=== PATIENT | female | born 1995 | race Caucasian/White ===

== ENCOUNTER 2018-04-30 16:37 | Emergency (ER) | payer BC ==
[2018-04-30 18:24] LABS: ABS Basophils 0 10^3/ul (0-0.2); ABS Eosinophils 0 10^3/ul (0-0.6); ABS Monocytes 0.9 10^3/ul (0-0.8); ABS Nucleated RBC 0 10^3/ul; Eosinophil % 0.2 % (0-6); Hematocrit 36 % (35-47); Hemoglobin 12.4 g/dl (12.0-16.0); Lymphocyte % 8.9 % (25-47); Mean Corpuscular HGB Conc 34 g/dl (31-36); Mean Corpuscular Hemoglobin 29 pg (27-31); Mean Corpuscular Volume 84 fL (80-97); Mean Platelet Volume 7.3 um3 (7.4-10.4); Nucleated Red Blood Cells % 0; Platelet Count 283 10^3/ul (150-450); Red Cell Distribution Width 14 % (10.5-15)
[2018-04-30 18:42] LABS: EGFR Non-African American 81.1 (>60)
[2018-04-30 19:19] LABS: Urine Appearance Clear; Urine Blood 1+ (Negative); Urine Color Yellow; Urine Ketones 1+ (Negative); Urine Protein Negative (Negative); Urine Red Blood Cell 1+(3-5/hpf) (Absent); Urine Specific Gravity 1.006 (1.010-1.030); Urine Urobilinogen Negative (Negative); Urine White Blood Cell 3+(>20/hpf) (Absent)
[2018-04-30] MEDS ORDERED: NS 0.9% 1000 ML* 1,000 ML IV ONE (19:58)
[2018-04-30] MEDS ORDERED: Ciprofloxacin 400MG IVPREMIX(* 400 MG/200 ML BAG IVPB ONE (19:58)
[2018-04-30] MEDS ORDERED: Ibuprofen TAB* 400 MG PO ONE (20:01)
--- NOTE | 2018-04-30 20:40 | ED ---
Back Pain - HPI Summary HPI Summary: This is scribe Macho Lakhwinder documenting for attending Dr. Adonis Ro MD. A 22 y/o female presents to ED c/o sharp lower back pain. As per triage, "pt states shes had lower back pain that started last night with a fever today. She does not know what her temp was. Also made mention of possible impacted bowel due to her just starting wellbutrin". According to the patient, since last night she has been experiencing sharp lower back pain. The pain is constant depending on how she moves ("more or less") and it kept her up all night. Additionally it seemed to migrate a bit. Today she noted that she spiked a fever. Patient denies any burning, blood or pain with urination. She believes it could be a possible impacted bowel due to recently starting her Wellbutrin medication. PMHx of Tonsillectomy, anxiety and depression, denies any UTI or bladder infection. SHx of student at [employer]. LKMP was a month ago, late by a couple days. Just started control. IUD. - History of Current Complaint Chief Complaint: EDBackInjuryPain Stated Complaint: LT SIDE ABD PAIN Time Seen by Provider: 04/30/18 18:04 Hx Obtained From: Patient Onset/Duration: Sudden Onset, Lasting Days, Still Present Onset/Duration: Started Days Ago, Still Present Back Pain Location: Is Discrete @ - Lower, Radiates To Severity Initially: Moderate Severity Currently: Moderate Pain Intensity: 6 Pain Scale Used: 0-10 Numeric Character: Sharp Aggravating Symptom(s): Movement Alleviating Symptom(s): Nothing Associated Signs And Symptoms: Positive: Fever - Allergies/Home Medications Allergies/Adverse Reactions: Allergies Allergy/AdvReac Type Severity Reaction Status Date / Time amoxicillin Allergy Rash Verified 04/30/18 18:33 Penicillins Allergy Rash Verified 04/30/18 18:33 sulfa drugs Allergy Rash Uncoded 04/30/18 18:33 PMH/Surg Hx/FS Hx/Imm Hx Endocrine/Hematology History: Denies: Hx Diabetes Cardiovascular History: Denies: Hx Hypertension Psychiatric History: Reports: Hx Anxiety, Hx Depression Infectious Disease History: No Infectious Disease History: Denies: Traveled Outside the [place] in Last 30 Days - Family History Known Family History: Positive: Cardiac Disease - Father side of family., Hypertension - Father, Diabetes - Type II (father) - Social History Alcohol Use: Occasionally - Very occasional Substance Use Type: Reports: None Hx Tobacco Use: No Smoking Status (MU): Never Smoked Tobacco Review of Systems Positive: Fever. Negative: Chills Negative: Erythema Negative: Sore Throat Negative: Chest Pain Negative: Shortness Of Breath, Cough Negative: Abdominal Pain, Vomiting, Nausea Negative: burning, dysuria, hematuria, pain Positive: Other - POSITIVE: Back pain.. Negative: Myalgia, Edema Negative: Rash Neurological: Other - NEGATIVE: Dizziness. All Other Systems Reviewed And Are Negative: Yes Physical Exam - Summary Physical Exam Summary: Constitutional: Well-developed, Well-nourished, Alert. (-) Distressed Skin: Warm, Dry HENT: Normocephalic; Atraumatic Eyes: Conjunctiva normal Neck: Musculoskeletal ROM normal neck. (-) JVD, (-) Stridor, (-) Tracheal deviation Cardio: Rhythm regular, rate normal, Heart sounds normal; Intact distal pulses; The pedal pulses are 2+ and symmetric. Radial pulses are 2+ and symmetric. (-) Murmur Pulmonary/Chest wall: Effort normal. (-) Respiratory distress, (-) Wheezes, (-) Rales Abd: Soft, (-) epigastric tenderness, (-) Distension, (-) Guarding, (-) Rebound. Left CVA tenderness. Musculoskeletal: (-) Edema Lymph: (-) Cervical adenopathy Neuro: Alert, Oriented x3 Psych: Mood and affect Normal Triage Information Reviewed: Yes Vital Signs On Initial Exam: Initial Vitals Temp Pulse Resp BP Pulse Ox 99.1 F 104 16 128/77 98 04/30/18 16:48 04/30/18 16:48 04/30/18 16:48 04/30/18 16:48 04/30/18 16:48 Vital Signs Reviewed: Yes Diagnostics - Vital Signs Vital Signs Temp Pulse Resp BP Pulse Ox 04/30/18 16:48 99.1 F 104 16 128/77 98 - Laboratory Lab Results: Lab Results 04/30/18 04/30/18 04/30/18 Range/Units 18:14 18:14 18:14 WBC 11.0 H (3.5-10.8) 10^3/ul RBC 4.30 (4.00-5.40) 10^6/ul Hgb 12.4 (12.0-16.0) g/dl Hct 36 (35-47) % MCV 84 (80-97) fL MCH 29 (27-31) pg MCHC 34 (31-36) g/dl RDW 14 (10.5-15) % Plt Count 283 (150-450) 10^3/ul MPV 7.3 L (7.4-10.4) um3 Neut % (Auto) 82.2 (38-83) % Lymph % (Auto) 8.9 L (25-47) % [place] % (Auto) 8.3 H (0-7) % Eos % (Auto) 0.2 (0-6) % Baso % (Auto) 0.4 (0-2) % Absolute Neuts (auto) 9.0 H (1.5-7.7) 10^3/ul Absolute Lymphs (auto) 1.0 (1.0-4.8) 10^3/ul Absolute Monos (auto) 0.9 H (0-0.8) 10^3/ul Absolute Eos (auto) 0 (0-0.6) 10^3/ul Absolute Basos (auto) 0 (0-0.2) 10^3/ul Absolute Nucleated RBC 0 10^3/ul Nucleated RBC % 0 Sodium 132 L (135-145) mmol/L Potassium 4.1 (3.5-5.0) mmol/L Chloride 98 L (101-111) mmol/L Carbon Dioxide 24 (22-32) mmol/L Anion Gap 10 (2-11) mmol/L BUN 10 (6-24) mg/dL Creatinine 0.88 (0.51-0.95) mg/dL Est GFR ( Amer) 98.1 (>60) Est GFR (Non-Af Amer) 81.1 (>60) BUN/Creatinine Ratio 11.4 (8-20) Glucose 103 H (70-100) mg/dL Lactic Acid 0.7 (0.5-2.0) mmol/L Calcium 10.0 (8.6-10.3) mg/dL Total Bilirubin 0.90 (0.2-1.0) mg/dL AST 14 (13-39) U/L ALT 11 (7-52) U/L Alkaline Phosphatase 56 (34-104) U/L C-Reactive Protein 19.94 H (<8.01) mg/L Total Protein 7.3 (6.4-8.9) g/dL Albumin 4.8 (3.2-5.2) g/dL Globulin 2.5 (2-4) g/dL Albumin/Globulin Ratio 1.9 (1-3) Lipase 11 (11.0-82.0) U/L Beta HCG, Quant Pending Urine Color Urine Appearance Urine pH (5-9) Ur Specific [place] (1.010-1.030) Urine Protein (Negative) Urine Ketones (Negative) Urine Blood (Negative) Urine Nitrate (Negative) Urine Bilirubin (Negative) Urine Urobilinogen (Negative) Ur Leukocyte Esterase (Negative) Urine WBC (Auto) (Absent) Urine RBC (Auto) (Absent) Ur Squamous Epith Cells (Absent) Urine Bacteria (Absent) Urine Glucose (Negative) 04/30/18 Range/Units 19:03 WBC (3.5-10.8) 10^3/ul RBC (4.00-5.40) 10^6/ul Hgb (12.0-16.0) g/dl Hct (35-47) % MCV (80-97) fL MCH (27-31) pg MCHC (31-36) g/dl RDW (10.5-15) % Plt Count (150-450) 10^3/ul MPV (7.4-10.4) um3 Neut % (Auto) (38-83) % Lymph % (Auto) (25-47) % [place] % (Auto) (0-7) % Eos % (Auto) (0-6) % Baso % (Auto) (0-2) % Absolute Neuts (auto) (1.5-7.7) 10^3/ul Absolute Lymphs (auto) (1.0-4.8) 10^3/ul Absolute Monos (auto) (0-0.8) 10^3/ul Absolute Eos (auto) (0-0.6) 10^3/ul Absolute Basos (auto) (0-0.2) 10^3/ul Absolute Nucleated RBC 10^3/ul Nucleated RBC % Sodium (135-145) mmol/L Potassium (3.5-5.0) mmol/L Chloride (101-111) mmol/L Carbon Dioxide (22-32) mmol/L Anion Gap (2-11) mmol/L BUN (6-24) mg/dL Creatinine (0.51-0.95) mg/dL Est GFR ( Amer) (>60) Est GFR (Non-Af Amer) (>60) BUN/Creatinine Ratio (8-20) Glucose (70-100) mg/dL Lactic Acid (0.5-2.0) mmol/L Calcium (8.6-10.3) mg/dL Total Bilirubin (0.2-1.0) mg/dL AST (13-39) U/L ALT (7-52) U/L Alkaline Phosphatase (34-104) U/L C-Reactive Protein (<8.01) mg/L Total Protein (6.4-8.9) g/dL Albumin (3.2-5.2) g/dL Globulin (2-4) g/dL Albumin/Globulin Ratio (1-3) Lipase (11.0-82.0) U/L Beta HCG, Quant Urine Color Yellow Urine Appearance Clear Urine pH 6.0 (5-9) Ur Specific [place] 1.006 L (1.010-1.030) Urine Protein Negative (Negative) Urine Ketones 1+ A (Negative) Urine Blood 1+ A (Negative) Urine Nitrate Positive A (Negative) Urine Bilirubin Negative (Negative) Urine Urobilinogen Negative (Negative) Ur Leukocyte Esterase 1+ A (Negative) Urine WBC (Auto) 3+(>20/hpf) A (Absent) Urine RBC (Auto) 1+(3-5/hpf) A (Absent) Ur Squamous Epith Cells Present A (Absent) Urine Bacteria 1+ A (Absent) Urine Glucose Negative (Negative) Result Diagrams: 04/30/18 18:14 04/30/18 18:14 Lab Statement: Any lab studies that have been ordered have been reviewed, and results considered in the medical decision making process. - Ultrasound No standard instances Ultrasound Interpretation Completed By: Radiologist - RENAL US: Sonographically normal left kidney. ED physician reviewed this radiology report. Re-Evaluation - Re-Evaluation First Eval Re-Evaluation Time: 21:30 Comment: MD had a length discussion with patient of discharge versus admission. Patient perferred discharge. Patient has no comorbidities. She understands if she feels worse tomorrow, she needs to come back to ED to be admitted. Patient has a road trip this week and it is advised to patient to make frequent stops. Patient will be discharged Back Pain Course/Dx - Course Course Of Treatment: A 22 y/o female presents to ED c/o sharp lower back pain. As per triage, "pt states shes had lower back pain that started last night with a fever today. She does not know what her temp was. Also made mention of possible impacted bowel due to her just starting wellbutrin". According to the patient, since last night she has been experiencing sharp lower back pain. The pain is constant depending on how she moves ("more or less") and it kept her up all night. Additionally it seemed to migrate a bit. Today she noted that she spiked a fever. A Renal US revealed sonographically normal left kidney. In the ED course, the patient received Cipro, Motrin and IV fluids. During reevaluation , MD had a length discussion with patient of discharge versus admission. Patient perferred discharge. Patient has no comorbidities. She understands if she feels worse tomorrow, she needs to come back to ED to be admitted. Patient has a road trip this week and it is advised to patient to make frequent stops. Patient will be discharged with a diagnosis of pyelonephritis. Patient is to follow up with [facility] in 1-2 days. Patient is agreeable with this plan. - Diagnoses Provider Diagnoses: Pyelonephritis Discharge - Sign-Out/Discharge Documenting (check all that apply): Patient Departure - DISCHARGE - Discharge Plan Condition: Stable Disposition: HOME Prescriptions: Ciprofloxacin TAB* [Cipro 500 MG TAB*] 500 mg PO BID #28 tab Patient Education Materials: Kidney Infection (ED), Low Back Strain (ED), Back Pain (ED) Referrals: [facility] [Outside] - 2 Days Additional Instructions: IF YOU FEEL WORSE TOMORROW, PLEASE COME BACK TO ED TO BE ADMITTED. DURING ROAD TRIP, IT IS ADVISED TO MAKE FREQUENT STOPS. FOLLOW UP WITH [facility] IN 1-2 DAYS. RETURN TO ED FOR ANY NEW OR WORSENING SYMPTOMS.
[2018-04-30 22:29] VITALS: BP 106/54
--- NOTE | 2018-05-01 07:28 | RAD ---
INDICATION: 18 hours of left flank pain COMPARISON: None TECHNIQUE: Real-time ultrasound examination of the left kidney including grayscale and Doppler color flow analysis. FINDINGS: Bilaterally the kidneys are normal in size and echogenicity. There are no hypervascular renal masses. There are no renal calculi or hydronephrosis identified. IMPRESSION: Normal ultrasound of the left kidney only.
--- NOTE | 2018-05-02 07:32 | PN ---
Progress Note - Progress Note Date of Service: 04/30/18 Note: Urine culture preliminary grew Escherichia coli 100,000 Patient was placed on ciprofloxacin prior to discharge We'll await sensitivities this time
--- NOTE | 2018-05-03 07:37 | PN ---
Progress Note - Progress Note Date of Service: 04/30/18 Note: E coli urine culture final Patient placed on Cipro prior to discharge Cipro sensitivity organism Nothing further at this time
== END 2018-04-30 22:28 | disposition home or self-care (01) ==
LOC: ED 16:37
DX: N12 Tubulo-interstitial nephritis, not specified as acute or chronic (principal); N39.0 Urinary tract infection, site not specified; B96.20 Unspecified Escherichia coli [E. coli] as the cause of diseases classified elsewhere
CPT/HCPCS: 36415; 76775; 80053; 81003; 81015; 83605; 83690; 84702; 85025; 86140; 87077; 87086; 87186; 96361; 96374; 99282; A9270-GY; J0744

== ENCOUNTER 2018-12-03 13:23 | Emergency (ER) | payer BC ==
[2018-12-03 13:54] VITALS: BP 102/65
--- NOTE | 2018-12-03 14:10 | UC ---
Complaint Female HPI - HPI Summary HPI Summary: 23 y/o female presents to the urgent care c/o frequency and burning on urination for the past 6 days. Frequency started first and then burning for the past 3 days. She has been drinking water, but no medications. Pain is 5/10 w/ urination. Pt denies fever, flank pain, lower back pain, vaginal discharge, pelvic pain, SOB, chest pain, abdominal pain, N/v/d, Hx of STD's. LMP:11/24/2018 w / IUD - History Of Current Complaint Chief Complaint: UCGU Stated Complaint: URINARY ISSUE Time Seen by Provider: 12/03/18 13:43 Hx Obtained From: Patient Hx Last Menstrual Period: 11/24/2018 Onset/Duration: Gradual Onset, Lasting Days - 6 days, Still Present, Worse Since - 3 days w/ burning on urination Timing: Intermittent Severity Initially: Mild Severity Currently: Moderate Pain Intensity: 5 Pain Scale Used: 0-10 Numeric Character: Burning Aggravating Factor(s): Urination Alleviating Factor(s): Nothing Associated Signs And Symptoms: Positive: Negative. Negative: Fever, Back Pain, Vaginal Discharge, Nausea, Vomiting(# Of Episodes =), Genital Swelling - Risk Factors Ectopic Risk Factor: Negative - Allergies/Home Medications Allergies/Adverse Reactions: Allergies Allergy/AdvReac Type Severity Reaction Status Date / Time amoxicillin Allergy Severe Anaphylatic Verified 12/03/18 13:54 Shock Penicillins Allergy Severe Anaphylatic Verified 12/03/18 13:54 Shock sulfa drugs Allergy Rash Uncoded 12/03/18 13:54 PMH/Surg Hx/FS Hx/Imm Hx Previously Healthy: Yes - Pt denies PMHX - Surgical History Surgical History: Yes Surgery Procedure, Year, and Place: Tonsils 2017 - Family History Known Family History: Positive: Cardiac Disease - Father side of family., Hypertension - Father, Diabetes - Type II (father) - Social History Occupation: Employed Full-time Lives: With Family Alcohol Use: Weekly Substance Use Type: None Smoking Status (MU): Never Smoked Tobacco Review of Systems All Other Systems Reviewed And Are Negative: Yes Constitutional: Positive: Negative Skin: Positive: Negative Eyes: Positive: Negative ENT: Positive: Negative Respiratory: Positive: Negative Cardiovascular: Positive: Negative Gastrointestinal: Positive: Negative Genitourinary: Positive: Dysuria, Frequency, Urgency Motor: Positive: Negative Neurovascular: Positive: Negative Musculoskeletal: Positive: Negative Neurological: Positive: Negative Psychological: Positive: Negative Is Patient Immunocompromised?: No Physical Exam - Summary Physical Exam Summary: VITAL SIGNS: Reviewed. GENERAL: Patient is a well developed and nourished female who is sitting comfortable in the examining table. Patient is not in any acute respiratory distress. HEAD AND FACE: No signs of trauma. No ecchymosis, hematomas or skull depressions. No sinus tenderness. EYES: PERRLA, EOMI x 2, No injected conjunctiva, clear watery eyes, no nystagmus. No photophobia. EARS: Hearing grossly intact. Ear canals and tympanic membranes are within normal limits. MOUTH: pharynx with no erythema, no exudates,no palatal petechiae. no B/L tonsillar enlargement Uvula in midline. NECK: Supple, trachea is midline, no lymphadenopathy, no JVD, no carotid bruit, no c-spine tenderness, neck with full ROM. CHEST: Symmetric, no tenderness at palpation LUNGS: Clear to auscultation bilaterally. No wheezing or crackles. CVS: Regular rate and rhythm, S1 and S2 present, no murmurs or gallops appreciated. ABDOMEN: Soft, non-tender. No signs of distention. No rebound no guarding, and no masses palpated. Bowel sounds are normal. BACK:no scoliosis or lesions, non tender to palpation, No B/L CVA tenderness EXTREMITIES: FROM in all major joints, no edema, no cyanosis or clubbing. NEURO: Alert and oriented x 3. No acute neurological deficits. Speech is normal and follows commands. SKIN: Dry and warm Triage Information Reviewed: Yes Vital Signs: Initial Vital Signs Temp 98.2 F 12/03/18 13:49 Pulse 86 12/03/18 13:49 Resp 16 12/03/18 13:49 BP 102/65 12/03/18 13:49 Pulse Ox 100 12/03/18 13:49 Complaint Female Dx - Course Course Of Treatment: 23 y/o female presents to the urgent care c/o frequency and burning on urination for the past 6 days. Frequency started first and then burning for the past 3 days. She has been drinking water, but no medications. Pain is 5/10 w/ urination. Pt denies fever, flank pain, lower back pain, vaginal discharge, pelvic pain, SOB, chest pain, abdominal pain, N/v/d, Hx of STD's. LMP:11/24/2018 w/ IUD. Hx obtained. PE:WNL. Pt decline pregnacy test. UA results: Blood trace, Leukoesterase trace. test: negative. Pt Rx Macrobid 100mg PO x 5 days. Pyridium 100mg PO TID x 2 days. Advised to increase fluid intake. Urine sent for culture if any abnormality Pt will be notified for further treatment. Pt advised If symptoms do not improve to return to the urgent care or f/u with PCP in 3 days for further managment. Pt understood and agreed w/ plan of care. Pt Left the clinic ambulating. - Differential Dx/Diagnosis Differential Diagnosis/HQI/PQRI: Cervicitis, Pelvic Inflammatory Disease, Renal Colic, Sexually Transmitted Disease, Ureteral Stone, Urinary Tract Infection Provider Diagnosis: UTI (urinary tract infection), Dysuria Discharge - Sign-Out/Discharge Documenting (check all that apply): Patient Departure - D/C home All imaging exams completed and their final reports reviewed: No Studies - Discharge Plan Condition: Stable Disposition: HOME Prescriptions: Nitrofurantoin Monohyd/M-Cryst [Macrobid 100 mg Capsule] 100 mg PO BID #10 cap Phenazopyridine TAB* [Pyridium 100 mg TAB*] 100 mg PO TID #6 tab Patient Education Materials: Urinary Tract Infection in Women (ED) Referrals: [facility] [Outside] - 3 Days Additional Instructions: 1- Please take Macrobid 100mg PO x 7 days. Pyridium 100 mg PO TID x 2 days to alleviate urinary symptoms. Increase increase fluid intake. drink cranberry juice. 2-Urine sent for culture if any abnormality, you will be notified for further treatment. 3-If symptoms do not improve please return to the urgent care or f/u with PCP in 3 days for further management. - Billing Disposition and Condition Condition: STABLE Disposition: Home
== END 2018-12-03 14:39 | disposition home or self-care (01) ==
LOC: UCEAST 13:23
DX: N39.0 Urinary tract infection, site not specified (principal); R30.0 Dysuria; Z88.0 Allergy status to penicillin; Z88.2 Allergy status to sulfonamides
CPT/HCPCS: 81003; 87077; 87086; 87186; 99212; G0463

== ENCOUNTER 2019-01-14 18:58 | Emergency (ER) | payer BC ==
--- NOTE | 2019-01-14 19:51 | ED ---
GI/ HPI - HPI Summary HPI Summary: Patient is a 23 y/o female who presents to the ED c/o nausea. For the past several months shes had digestive issues. Patient c/o nausea, reflux, belching , decreased appetite, and weight loss. She denies any abdominal pain. As per mother, shes lost about 30 lbs in the past 4 months. Her symptoms are made worse with eating. Patient was placed on Pepcid for 1 month however she has no relief with this. She notes that shes been on Wellbutrin and Prozac for the past year, and believes her symptoms may be due to these medications. Patient reports that her anxiety and depression have decreased since being on these medications. She has been trying to get into a new psychiatrist lately but hasn t been able to. - History of Current Complaint Chief Complaint: EDAbdPain Time Seen by Provider: 01/14/19 19:43 Stated Complaint: NAUSEA/VOMITING PER PT Hx Obtained From: Patient, Family/Studio Manager - Parents Hx Last Menstrual Period: 11/24/2018 Onset/Duration: Started Weeks Ago - several months, Still Present Timing: Constant Pain Intensity: 0 Associated Signs and Symptoms: Positive: Nausea, Weight Loss. Negative: Abdominal Pain Aggravating Factor(s): Food Alleviating Factor(s): Nothing - Allergy/Home Medications Allergies/Adverse Reactions: Allergies Allergy/AdvReac Type Severity Reaction Status Date / Time amoxicillin Allergy Severe Anaphylatic Verified 12/03/18 13:54 Shock Penicillins Allergy Severe Anaphylatic Verified 12/03/18 13:54 Shock sulfa drugs Allergy Rash Uncoded 12/03/18 13:54 PMH/Surg Hx/FS Hx/Imm Hx Endocrine/Hematology History: Denies: Hx Diabetes, Hx Thyroid Disease Cardiovascular History: Denies: Hx Hypertension Respiratory History: Denies: Hx Asthma, Hx Chronic Obstructive Pulmonary Disease (COPD) GI History: Denies: Hx Crohn's Disease, Hx Irritable Bowel, Hx Ulcer Psychiatric History: Reports: Hx Anxiety, Hx Depression - Surgical History Surgery Procedure, Year, and Place: 2016 Infectious Disease History: No Infectious Disease History: Denies: Hx Hepatitis, Hx Human Immunodeficiency Virus (HIV), Traveled Outside the [place] in Last 30 Days - Family History Known Family History: Positive: Cardiac Disease - Father side of family., Hypertension - Father, Diabetes - Type II (father) - Social History Alcohol Use: Weekly Hx Substance Use: No Substance Use Type: Reports: None Hx Tobacco Use: No Smoking Status (MU): Never Smoked Tobacco Review of Systems Positive: Other - weight loss Positive: Nausea, Other - decreased appetite, belching, reflux. Negative: Abdominal Pain All Other Systems Reviewed And Are Negative: Yes Physical Exam - Summary Physical Exam Summary: Appearance: Well appearing, no pain distress Skin: warm, dry, reflects adequate perfusion Head/face: normal Eyes: EOMI, JOSETTE ENT: normal Neck: supple, non-tender Respiratory: CTA, breath sounds present Cardiovascular: RRR, pulses symmetrical Abdomen: non-tender, soft Musculoskeletal: normal, strength/ROM intact Neuro: normal, sensory motor intact, A&Ox3 Triage Information Reviewed: Yes Vital Signs On Initial Exam: Initial Vitals Temp Pulse Resp BP Pulse Ox 98.7 F 95 15 114/73 100 01/14/19 19:00 01/14/19 19:00 01/14/19 19:00 01/14/19 19:00 01/14/19 19:00 Vital Signs Reviewed: Yes Diagnostics - Vital Signs Vital Signs Temp Pulse Resp BP Pulse Ox 01/14/19 19:00 98.7 F 95 15 114/73 100 - Laboratory Result Diagrams: 01/14/19 20:16 01/14/19 20:16 Lab Statement: Any lab studies that have been ordered have been reviewed, and results considered in the medical decision making process. Re-Evaluation - Re-Evaluation First Eval Re-Evaluation Time: 21:05 Change: Improved Comment: Pt feels fine now. GIGU Course/Dx - Course Course Of Treatment: Patient is a 23 y/o female who presents to the ED c/o nausea, reflux, belching, decreased appetite, and weight loss. She notes that shes been on Wellbutrin and Prozac for the past year, and believes her symptoms may be due to these medications. A physical exam was normal. Bloodwork/ UA obtained. Patient will be discharged with final dx of GERD and depression. She is agreeable with this plan. - Diagnoses Differential Diagnoses - Female: Gerd Provider Diagnoses: GERD (gastroesophageal reflux disease), Depression Discharge - Sign-Out/Discharge Documenting (check all that apply): Patient Departure - Discharge Patient Received Moderate/Deep Sedation with Procedure: No - Discharge Plan Condition: Improved Disposition: HOME Patient Education Materials: Depression (ED), Gastroesophageal Reflux Disease ( ED) [place]errals: [facility] [place] [facility] [place] [facility] [place]] - 3 Days Additional Instructions: RETURN TO THE ED WITH ANY NEW OR WORSENING SYMPTOMS. - Billing Disposition and Condition Condition: IMPROVED Disposition: Home - Attestation Statements Document Initiated by Adele: Yes Documenting Scribe: Eleanor Sawyer Provider For Whom Scribe is Documenting (Include Credential): Shahid Seaman MD Scribe Attestation: Eleanor Reilly, scribed for Shahid Seaman MD on 01/14/19 at 2143. Scribe Documentation Reviewed: Yes Provider Attestation: The documentation as recorded by the Eleanor molina accurately reflects the service I personally performed and the decisions made by Shahid ferrer MD Status of Scribe Document: Viewed
[2019-01-14 20:22] LABS: ABS Basophils 0.1 10^3/ul (0-0.2); ABS Eosinophils 0.1 10^3/ul (0-0.6); ABS Lymphocytes 2.2 10^3/ul (1.0-4.8); ABS Monocytes 0.5 10^3/ul (0-0.8); ABS Neutrophils 3.5 10^3/ul (1.5-7.7); ABS Nucleated RBC 0 10^3/ul; Hematocrit 32 % (33-41); Hemoglobin 10.7 g/dL (12.0-16.0); Lymphocyte % 34.4 %; Mean Corpuscular HGB Conc 33 g/dL (31-36); Mean Corpuscular Hemoglobin 27 pg (27-31); Mean Corpuscular Volume 82 fL (80-97); Mean Platelet Volume 6.9 fL (7.4-10.4); Nucleated Red Blood Cells % 0; Platelet Count 331 10^3/uL (150-450); Red Blood Count 3.96 10^6 /uL (3.70-4.87); Red Cell Distribution Width 14 % (10.5-15); White Blood Count 6.4 10^3/uL (3.5-10.8)
[2019-01-14 20:43] LABS: ALT 8 U/L (7-52); AST 12 U/L (13-39); Albumin 4.4 g/dL (3.2-5.2); Albumin/Globulin Ratio 2.1 (1-3); Alkaline Phosphatase 48 U/L (34-104); Anion Gap 7 mmol/L (2-11); Blood Urea Nitrogen 12 mg/dL (6-24); CO2 Carbon Dioxide 26 mmol/L (22-32); Calcium 9.3 mg/dL (8.6-10.3); Chloride 104 mmol/L (101-111); EGFR African American 99.8 (>60); EGFR Non-African American 82.5 (>60); Globulin 2.1 g/dL (2-4); Glucose 106 mg/dL (70-100); Potassium 4.4 mmol/L (3.5-5.0); Sodium 137 mmol/L (135-145); Total Protein 6.5 g/dL (6.4-8.9)
[2019-01-14 20:44] LABS: Acetaminophen < 15 mcg/mL; Alcohol < 10 mg/dL (<10); Salicylate < 2.50 mg/dL (<30)
[2019-01-14 20:45] LABS: HCG Pregnancy < 0.60 mIU/mL
[2019-01-14 21:53] VITALS: BP 119/71
== END 2019-01-14 21:51 | disposition home or self-care (01) ==
LOC: ED 18:58
DX: K21.9 Gastro-esophageal reflux disease without esophagitis (principal); F32.9 Major depressive disorder, single episode, unspecified; Z88.0 Allergy status to penicillin; Z88.2 Allergy status to sulfonamides
CPT/HCPCS: 36415; 80053; 80320; 80329; 83690; 84443; 84702; 85025; 99284; G0480